=== PATIENT | male | born 1960 | race Caucasian/White ===

== ENCOUNTER 2020-01-02 14:16 | Emergency (ER) | payer SELFPAY ==
[~2020-01-02] VITALS: Ht 180.3 cm; Wt 91.0 kg
[2020-01-02 14:21] VITALS: BP 110/66
[2020-01-02 15:35] LABS: BASOPHILS % 0.5 % (0.0-2.0); EOSINOPHILS % 5.7 % (0.0-5.0); HEMATOCRIT. 34.6 % (42.0-52.0); HEMOGLOBIN. 10.9 g/dL (14.0-18.0); LYMPHOCYTES % 14.3 % (20.0-50.0); MEAN CORPUSCULAR HEMOGLOBIN 23.9 pg (28.0-32.0); MEAN CORPUSCULAR VOLUME 75.6 fL (80.0-94.0); MEAN PLATELET VOLUME 7.8 fl (7.4-10.4); MONOCYTES % 5.4 % (2.0-8.0); NEUTROPHILS % 74.1 % (40.0-76.0); PLATELET 268 x1000/uL (130-400); RED BLOOD CELL COUNT 4.58 mill/uL (4.7-6.1); RED CELL DISTRIBUTION WIDTH 17.6 % (11.6-14.6)
[2020-01-02 15:41] LABS: CHLORIDE 111 mEq/L (98-107)
[2020-01-02 15:45] LABS: ETHANOL BLOOD < 10 mg/dL
== END 2020-01-02 15:33 | disposition left against medical advice (07) ==
LOC: ER 14:16 → CANBEDREQ 16:46
DX: R07.89 Other chest pain (principal); R11.2 Nausea with vomiting, unspecified
CPT/HCPCS: 36415; 80053; 80320; 83880; 84484; 85025; 93005; 99285; G0480